=== PATIENT | female | born 1950 | race Caucasian/White ===

== ENCOUNTER 2017-01-19 19:44 | Inpatient (IN) | payer MEDICARE ==
[~2017-01-19] VITALS: Ht 154.9 cm; Wt 61.4 kg
[2017-01-19] MEDS ORDERED: SODIUM CHLORIDE 0.9% 1,000 ML IV ONE ×2 (19:55→22:23)
[2017-01-19] MEDS ORDERED: ONDANSETRON 2MG/ML, 2ML IVPush ONE (20:00)
[2017-01-19] MEDS ORDERED: MORPHINE SULFATE 4 MG/ML, 1ML IVPush PRN (20:00)
[2017-01-19] MEDS ORDERED: ACETAMINOPHEN 325 MG TABLET PO ONE (20:00)
[2017-01-19] MEDS ORDERED: SODIUM CHLORIDE FLUSH 10ML SYR IVF ONE (20:00)
[2017-01-19 20:41] LABS: HEMOGLOBIN 11.4 g/dL (11.7-16.4)
[2017-01-19] MEDS ORDERED: HYDROmorphone 1 MG/ML, 1ML ONE ×3 (20:47→22:00)
[2017-01-19] MEDS ORDERED: ACETAMINOPHEN 325 MG TABLET ONE (20:47)
[2017-01-19] MEDS ORDERED: ONDANSETRON 2MG/ML, 2ML ONE (20:47)
[2017-01-19 20:53] LABS: ASPARTATE AMINO TRANSFERASE 11 U/L (15-37); BLOOD UREA NITROGEN 12 mg/dL (7-18)
[2017-01-19] MEDS: HYDROmorphone 1 MG/ML, 1ML IVPush PRN ×2 (21:04→21:31)
[2017-01-19] MEDS ORDERED: DOCU240C31 PO (21:26)
[2017-01-19] MEDS ORDERED: MULT-108 PO (21:26)
[2017-01-19] MEDS ORDERED: DULO30CA2 PO (21:26)
[2017-01-19] MEDS ORDERED: DICL100G8 TP (21:26)
[2017-01-19] MEDS ORDERED: OMEP-110 PO (21:26)
[2017-01-19] MEDS ORDERED: SPIR50TA2 PO (21:26)
[2017-01-19] MEDS ORDERED: MULT-2 PO (21:26)
[2017-01-19] MEDS ORDERED: OXYC10TA32 PO (21:26)
[2017-01-19] MEDS ORDERED: BIMA2.5D EACHEYE (21:26)
[2017-01-19] MEDS ORDERED: SULF1TAB24 PO (21:26)
[2017-01-19] MEDS ORDERED: LISI5TAB7 PO (21:26)
[2017-01-19] MEDS ORDERED: POLY17PO3 PO (21:26)
[2017-01-19] MEDS ORDERED: TRAZ150T68 PO (21:26)
[2017-01-19] MEDS ORDERED: FERR325T20 PO (21:26)
[2017-01-19] MEDS ORDERED: erythromycin oint EACHEYE (21:26)
[2017-01-19] MEDS ORDERED: OXYC5TAB3 PO (21:26)
[2017-01-19] MEDS ORDERED: PRIM50TA PO (21:26)
[2017-01-19] MEDS ORDERED: THIA50TA2 PO (21:26)
[2017-01-19] MEDS ORDERED: PROP10TA PO (21:26)
[2017-01-19] MEDS ORDERED: FOLI-17 PO (21:26)
[2017-01-19] MEDS ORDERED: HYDROmorphone 1 MG/ML, 1ML IVPush PRN (22:00)
[2017-01-19] MEDS ORDERED: SODIUM CHLORIDE FLUSH 10ML SYR IVF PRN (22:30)
[2017-01-19] MEDS ORDERED: CEFTRIAXONE PMX 1GM/50ML 50 ML IVPB ONE (22:30)
[2017-01-19] MEDS ORDERED: CEFTRIAXONE PMX 1GM/50ML 50 ML ONE (22:42)
[2017-01-19 23:20] VITALS: BP 93/59
[2017-01-19] MEDS ORDERED: SODIUM CHLORIDE 0.9% 1,000 ML IV SCH (23:35)
[2017-01-20] MEDS ORDERED: ONDANSETRON 2MG/ML, 2ML IVP PRN
[2017-01-20] MEDS ORDERED: GUAIFENESIN/DM 200-20MG, 10ML UDC PO PRN
[2017-01-20] MEDS: CEFTRIAXONE PMX 1GM/50ML 50 ML IV SCH ×3 (00:04→23:52)
[2017-01-20] MEDS: ENOXAPARIN 40 MG/0.4 ML SQ SCH ×2 (00:04→20:25)
[2017-01-20] MEDS: PRIMIDONE 50 MG TABLET PO SCH ×2 (00:05→20:24)
[2017-01-20] MEDS: OxyconTIN ER 10 MG TAB.ER PO SCH ×3 (00:08→20:24)
[2017-01-20 01:24] VITALS: BP 93/59
[2017-01-20 03:26] VITALS: BP 102/64
[2017-01-20 05:50] LABS: BLOOD UREA NITROGEN 11 mg/dL (7-18)
[2017-01-20] MEDS: OXYcodone IR 5MG TABLET PO PRN ×3 (06:39→21:33)
[2017-01-20 07:42] VITALS: BP 111/71
[2017-01-20] MEDS: POLYETHYLENE GLYCOL 17 GM PACKET PO SCH (09:00)
[2017-01-20] MEDS ORDERED: OMEPRAZOLE 20 MG CAPSULE.DR PO SCH (09:00)
[2017-01-20] MEDS: DOCUSATE 100 MG CAPSULE PO SCH (09:00)
[2017-01-20] MEDS ORDERED: PROPRANOLOL 10 MG TABLET PO SCH (09:00)
[2017-01-20] MEDS: SPIRONOLACTONE 50 MG TABLET PO SCH (09:00)
[2017-01-20] MEDS: THIAMINE 50MG TABLET PO SCH (09:00)
[2017-01-20] MEDS ORDERED: LISINOPRIL 5 MG TABLET PO SCH (09:00)
[2017-01-20] MEDS: FERROUS SULFATE 325 MG TABLET PO SCH ×2 (09:08→17:01)
[2017-01-20] MEDS: FOLIC ACID 1 MG TABLET PO SCH (09:08)
[2017-01-20] MEDS: DULOXETINE 30 MG CAPSULE.DR PO SCH (09:08)
[2017-01-20] MEDS: MULTIVITAMIN 1 TABLET PO SCH (09:09)
[2017-01-20] MEDS: KETOROLAC 30 MG/1 ML IVPush PRN ×2 (12:16→20:25)
[2017-01-20] MEDS: SODIUM CHLORIDE 0.9% 1,000 ML IV SCH (12:19)
[2017-01-20 13:53] VITALS: BP 106/68
[2017-01-20] MEDS: PHENAZOPYRIDINE 100 MG TABLET PO PRN ×2 (17:01→23:42)
[2017-01-20 19:15] VITALS: BP 158/73
[2017-01-20] MEDS: TRAZODONE 150MG TABLET PO SCH (20:24)
[2017-01-20] MEDS: BIMATOPROST EACHEYE SCH (20:37)
[2017-01-21 02:20] VITALS: BP 134/86
[2017-01-21] MEDS: OXYcodone IR 5MG TABLET PO PRN ×4 (03:28→23:06)
[2017-01-21] MEDS: KETOROLAC 30 MG/1 ML IVPush PRN ×2 (05:06→13:09)
[2017-01-21 05:38] LABS: HEMOGLOBIN 9.9 g/dL (11.7-16.4)
[2017-01-21 05:51] LABS: BLOOD UREA NITROGEN 9 mg/dL (7-18)
[2017-01-21] MEDS: SODIUM CHLORIDE 0.9% 1,000 ML IV SCH ×2 (06:07→20:02)
[2017-01-21 07:25] VITALS: BP 95/63
[2017-01-21] MEDS: DULOXETINE 30 MG CAPSULE.DR PO SCH (08:39)
[2017-01-21] MEDS: DOCUSATE 100 MG CAPSULE PO SCH (08:39)
[2017-01-21] MEDS: SPIRONOLACTONE 50 MG TABLET PO SCH (08:39)
[2017-01-21] MEDS: FERROUS SULFATE 325 MG TABLET PO SCH ×2 (08:39→17:04)
[2017-01-21] MEDS: MULTIVITAMIN 1 TABLET PO SCH (08:40)
[2017-01-21] MEDS: FOLIC ACID 1 MG TABLET PO SCH (08:40)
[2017-01-21] MEDS: THIAMINE 50MG TABLET PO SCH (08:40)
[2017-01-21] MEDS: OxyconTIN ER 10 MG TAB.ER PO SCH ×2 (08:40→20:01)
[2017-01-21] MEDS: POLYETHYLENE GLYCOL 17 GM PACKET PO SCH (08:40)
[2017-01-21] MEDS: PROPRANOLOL 10 MG TABLET PO SCH (08:40)
[2017-01-21] MEDS ORDERED: SODIUM CHLORIDE 0.9%, 500ML IVBOLUS ONE (11:00)
[2017-01-21] MEDS: CEFTRIAXONE PMX 1GM/50ML 50 ML IV SCH ×2 (12:23→23:06)
[2017-01-21] MEDS: PHENAZOPYRIDINE 100 MG TABLET PO PRN ×2 (13:09→21:30)
[2017-01-21] MEDS ORDERED: KETOROLAC 30 MG/1 ML IVPush PRN (13:30)
[2017-01-21 13:59] VITALS: BP 155/83
[2017-01-21 14:11] LABS: HEMOGLOBIN 9.6 g/dL (11.7-16.4)
[2017-01-21 14:47] LABS: OCCBLD OBC PASS
[2017-01-21] MEDS: TRAZODONE 150MG TABLET PO SCH (20:01)
[2017-01-21] MEDS: ENOXAPARIN 40 MG/0.4 ML SQ SCH (20:02)
[2017-01-21] MEDS: PRIMIDONE 50 MG TABLET PO SCH (20:02)
[2017-01-21] MEDS: BIMATOPROST EACHEYE SCH (20:05)
[2017-01-21 20:08] VITALS: BP 150/95
[2017-01-21 21:05] LABS: OCCBLD OBC PASS
[2017-01-21 21:10] LABS: OCCBLD OBC PASS
[2017-01-22 01:03] VITALS: BP 140/76
[2017-01-22] MEDS: OXYcodone IR 5MG TABLET PO PRN ×3 (05:05→18:19)
[2017-01-22] MEDS: SODIUM CHLORIDE 0.9% 1,000 ML IV SCH (05:05)
[2017-01-22 05:52] LABS: BLOOD UREA NITROGEN 8 mg/dL (7-18)
[2017-01-22 07:11] VITALS: BP 142/76
[2017-01-22] MEDS: MULTIVITAMIN 1 TABLET PO SCH (08:59)
[2017-01-22] MEDS: DOCUSATE 100 MG CAPSULE PO SCH ×2 (08:59→09:00)
[2017-01-22] MEDS: FERROUS SULFATE 325 MG TABLET PO SCH ×2 (08:59→18:18)
[2017-01-22] MEDS: DULOXETINE 30 MG CAPSULE.DR PO SCH (08:59)
[2017-01-22] MEDS: OxyconTIN ER 10 MG TAB.ER PO SCH ×2 (09:00→20:45)
[2017-01-22] MEDS: SPIRONOLACTONE 50 MG TABLET PO SCH (09:00)
[2017-01-22] MEDS: POLYETHYLENE GLYCOL 17 GM PACKET PO SCH ×2 (09:00→09:01)
[2017-01-22] MEDS: FOLIC ACID 1 MG TABLET PO SCH (09:00)
[2017-01-22] MEDS: THIAMINE 50MG TABLET PO SCH (09:00)
[2017-01-22] MEDS: PROPRANOLOL 10 MG TABLET PO SCH (09:01)
[2017-01-22] MEDS: LISINOPRIL 5 MG TABLET PO SCH (11:46)
[2017-01-22] MEDS ORDERED: OXYBUTYNIN CHLORIDE 5 MG TABLET PO PRN (12:00)
[2017-01-22] MEDS ORDERED: PHENAZOPYRIDINE 200 MG TABLET PO PRN (12:00)
[2017-01-22] MEDS: CEFTRIAXONE PMX 1GM/50ML 50 ML IV SCH (12:42)
[2017-01-22 13:50] VITALS: BP 140/80
[2017-01-22 20:20] VITALS: BP 136/86
[2017-01-22] MEDS: PRIMIDONE 50 MG TABLET PO SCH (20:45)
[2017-01-22] MEDS: BIMATOPROST EACHEYE SCH (20:46)
[2017-01-22] MEDS: TRAZODONE 150MG TABLET PO SCH (20:46)
[2017-01-22] MEDS: ENOXAPARIN 40 MG/0.4 ML SQ SCH (20:46)
[2017-01-23] MEDS: CEFTRIAXONE PMX 1GM/50ML 50 ML IV SCH ×2 (00:07→12:18)
[2017-01-23] MEDS: OXYcodone IR 5MG TABLET PO PRN ×4 (00:07→18:22)
[2017-01-23 02:41] VITALS: BP 163/99
[2017-01-23 06:11] LABS: HEMOGLOBIN 10.2 g/dL (11.7-16.4)
[2017-01-23 06:26] LABS: BLOOD UREA NITROGEN 4 mg/dL (7-18)
[2017-01-23 07:32] VITALS: BP 159/95
[2017-01-23] MEDS: POLYETHYLENE GLYCOL 17 GM PACKET PO SCH (09:00)
[2017-01-23] MEDS: THIAMINE 50MG TABLET PO SCH (09:00)
[2017-01-23] MEDS: FOLIC ACID 1 MG TABLET PO SCH (09:32)
[2017-01-23] MEDS: FERROUS SULFATE 325 MG TABLET PO SCH ×2 (09:32→17:02)
[2017-01-23] MEDS: SPIRONOLACTONE 50 MG TABLET PO SCH (09:32)
[2017-01-23] MEDS: DOCUSATE 100 MG CAPSULE PO SCH (09:32)
[2017-01-23] MEDS: MULTIVITAMIN 1 TABLET PO SCH (09:32)
[2017-01-23] MEDS: PROPRANOLOL 10 MG TABLET PO SCH (09:32)
[2017-01-23] MEDS: DULOXETINE 30 MG CAPSULE.DR PO SCH (09:32)
[2017-01-23] MEDS: OxyconTIN ER 10 MG TAB.ER PO SCH ×2 (09:33→21:18)
[2017-01-23] MEDS: LISINOPRIL 5 MG TABLET PO SCH (09:33)
[2017-01-23 12:43] VITALS: BP 156/90
[2017-01-23 20:17] VITALS: BP 159/95
[2017-01-23] MEDS: BIMATOPROST EACHEYE SCH (21:00)
[2017-01-23] MEDS: TRAZODONE 150MG TABLET PO SCH (21:17)
[2017-01-23] MEDS: ENOXAPARIN 40 MG/0.4 ML SQ SCH (21:18)
[2017-01-23] MEDS: PRIMIDONE 50 MG TABLET PO SCH (21:18)
[2017-01-24] MEDS: OXYcodone IR 5MG TABLET PO PRN ×4 (00:15→19:57)
[2017-01-24] MEDS: CEFTRIAXONE PMX 1GM/50ML 50 ML IV SCH ×2 (00:15→12:05)
[2017-01-24 05:33] VITALS: BP 145/86
[2017-01-24 07:58] VITALS: BP 137/87
[2017-01-24] MEDS: POLYETHYLENE GLYCOL 17 GM PACKET PO SCH (08:17)
[2017-01-24] MEDS: THIAMINE 50MG TABLET PO SCH (09:00)
[2017-01-24] MEDS: LISINOPRIL 5 MG TABLET PO SCH (09:19)
[2017-01-24] MEDS: FOLIC ACID 1 MG TABLET PO SCH (09:19)
[2017-01-24] MEDS: PROPRANOLOL 10 MG TABLET PO SCH (09:19)
[2017-01-24] MEDS: MULTIVITAMIN 1 TABLET PO SCH (09:19)
[2017-01-24] MEDS: FERROUS SULFATE 325 MG TABLET PO SCH ×2 (09:19→16:00)
[2017-01-24] MEDS: SPIRONOLACTONE 50 MG TABLET PO SCH (09:19)
[2017-01-24] MEDS: DOCUSATE 100 MG CAPSULE PO SCH (09:19)
[2017-01-24] MEDS: DULOXETINE 30 MG CAPSULE.DR PO SCH (09:19)
[2017-01-24] MEDS: OxyconTIN ER 10 MG TAB.ER PO SCH ×2 (09:20→21:43)
[2017-01-24 13:08] VITALS: BP 152/77
[2017-01-24] MEDS: LACTOBACILLUS CHEW TABLET PO SCH ×2 (16:00→21:42)
[2017-01-24 19:50] VITALS: BP 152/90
[2017-01-24] MEDS: BIMATOPROST EACHEYE SCH (21:00)
[2017-01-24] MEDS: ENOXAPARIN 40 MG/0.4 ML SQ SCH (21:42)
[2017-01-24] MEDS: CEFDINIR 300 MG CAPSULE PO SCH (21:42)
[2017-01-24] MEDS: TRAZODONE 150MG TABLET PO SCH (21:43)
[2017-01-24] MEDS: PRIMIDONE 50 MG TABLET PO SCH (21:43)
[2017-01-25 02:00] VITALS: BP 153/83
[2017-01-25] MEDS: OXYcodone IR 5MG TABLET PO PRN ×3 (02:15→14:44)
[2017-01-25 05:31] LABS: HEMOGLOBIN 10.1 g/dL (11.7-16.4)
[2017-01-25 05:38] LABS: BLOOD UREA NITROGEN 7 mg/dL (7-18)
[2017-01-25 06:20] LABS: DIFF TOTAL CELLS COUNTED 100 CELL DIFF
[2017-01-25 06:24] LABS: VERIFY COUNTS? YES
[2017-01-25 07:12] VITALS: BP 137/81
[2017-01-25] MEDS ORDERED: DIAZEPAM 5 MG TABLET PO ONE (08:00)
[2017-01-25] MEDS: FOLIC ACID 1 MG TABLET PO SCH (10:09)
[2017-01-25] MEDS: DULOXETINE 30 MG CAPSULE.DR PO SCH (10:09)
[2017-01-25] MEDS: MULTIVITAMIN 1 TABLET PO SCH (10:09)
[2017-01-25] MEDS: PROPRANOLOL 10 MG TABLET PO SCH (10:10)
[2017-01-25] MEDS: OxyconTIN ER 10 MG TAB.ER PO SCH ×2 (10:10→20:28)
[2017-01-25] MEDS: SPIRONOLACTONE 50 MG TABLET PO SCH (10:11)
[2017-01-25] MEDS: POLYETHYLENE GLYCOL 17 GM PACKET PO SCH (10:11)
[2017-01-25] MEDS: LACTOBACILLUS CHEW TABLET PO SCH ×3 (10:11→20:29)
[2017-01-25] MEDS: THIAMINE 50MG TABLET PO SCH (10:11)
[2017-01-25] MEDS: DOCUSATE 100 MG CAPSULE PO SCH (10:11)
[2017-01-25] MEDS: FERROUS SULFATE 325 MG TABLET PO SCH ×2 (10:11→17:09)
[2017-01-25] MEDS: LISINOPRIL 5 MG TABLET PO SCH (10:11)
[2017-01-25] MEDS: CEFDINIR 300 MG CAPSULE PO SCH ×2 (10:11→20:29)
[2017-01-25 12:33] VITALS: BP 158/88
[2017-01-25] MEDS ORDERED: POTASSIUM CHLORIDE 20 MEQ TAB.ER.PRT PO ONE (14:00)
[2017-01-25] MEDS ORDERED: DIAZEPAM 5 MG TABLET ONE (16:03)
[2017-01-25 18:55] VITALS: BP 164/116
[2017-01-25] MEDS: PRIMIDONE 50 MG TABLET PO SCH (20:27)
[2017-01-25] MEDS: LISINOPRIL 10 MG TABLET PO SCH (20:29)
[2017-01-25] MEDS: TRAZODONE 150MG TABLET PO SCH (20:29)
[2017-01-25] MEDS: ENOXAPARIN 40 MG/0.4 ML SQ SCH (20:35)
[2017-01-25] MEDS: BIMATOPROST EACHEYE SCH (21:00)
[2017-01-26 02:37] VITALS: BP 134/79
[2017-01-26] MEDS: OXYcodone IR 5MG TABLET PO PRN ×4 (04:33→23:39)
[2017-01-26 05:17] LABS: BLOOD UREA NITROGEN 9 mg/dL (7-18)
[2017-01-26 06:54] VITALS: BP 125/76
[2017-01-26] MEDS: THIAMINE 50MG TABLET PO SCH (09:00)
[2017-01-26] MEDS: OxyconTIN ER 10 MG TAB.ER PO SCH ×2 (09:55→19:59)
[2017-01-26] MEDS: FERROUS SULFATE 325 MG TABLET PO SCH ×2 (09:55→17:24)
[2017-01-26] MEDS: LISINOPRIL 10 MG TABLET PO SCH ×2 (09:56→19:57)
[2017-01-26] MEDS: DOCUSATE 100 MG CAPSULE PO SCH (09:57)
[2017-01-26] MEDS: LACTOBACILLUS CHEW TABLET PO SCH ×3 (09:57→19:57)
[2017-01-26] MEDS: MULTIVITAMIN 1 TABLET PO SCH (09:57)
[2017-01-26] MEDS: SPIRONOLACTONE 50 MG TABLET PO SCH (09:58)
[2017-01-26] MEDS: DULOXETINE 30 MG CAPSULE.DR PO SCH (09:58)
[2017-01-26] MEDS: FOLIC ACID 1 MG TABLET PO SCH (09:58)
[2017-01-26] MEDS: POLYETHYLENE GLYCOL 17 GM PACKET PO SCH (09:59)
[2017-01-26] MEDS: PROPRANOLOL 10 MG TABLET PO SCH (09:59)
[2017-01-26] MEDS: CEFDINIR 300 MG CAPSULE PO SCH ×2 (09:59→19:57)
[2017-01-26] MEDS ORDERED: PRIM50TA PO (12:46)
[2017-01-26 13:24] VITALS: BP 161/89
[2017-01-26 18:35] VITALS: BP 147/88
[2017-01-26] MEDS: TRAZODONE 150MG TABLET PO SCH (19:57)
[2017-01-26] MEDS: PRIMIDONE 50 MG TABLET PO SCH (19:58)
[2017-01-26] MEDS: ENOXAPARIN 40 MG/0.4 ML SQ SCH (20:00)
[2017-01-26] MEDS: BIMATOPROST EACHEYE SCH (20:03)
[2017-01-27 04:54] VITALS: BP 108/72
[2017-01-27] MEDS: OXYcodone IR 5MG TABLET PO PRN ×3 (05:17→15:58)
[2017-01-27 07:33] VITALS: BP 132/84
[2017-01-27] MEDS: FOLIC ACID 1 MG TABLET PO SCH (09:00)
[2017-01-27] MEDS: THIAMINE 50MG TABLET PO SCH (09:00)
[2017-01-27] MEDS: SPIRONOLACTONE 50 MG TABLET PO SCH (09:00)
[2017-01-27] MEDS: LACTOBACILLUS CHEW TABLET PO SCH (09:09)
[2017-01-27] MEDS: FERROUS SULFATE 325 MG TABLET PO SCH (09:09)
[2017-01-27] MEDS: POLYETHYLENE GLYCOL 17 GM PACKET PO SCH (09:09)
[2017-01-27] MEDS: LISINOPRIL 10 MG TABLET PO SCH (09:10)
[2017-01-27] MEDS: MULTIVITAMIN 1 TABLET PO SCH (09:10)
[2017-01-27] MEDS: DOCUSATE 100 MG CAPSULE PO SCH (09:10)
[2017-01-27] MEDS: DULOXETINE 30 MG CAPSULE.DR PO SCH (09:10)
[2017-01-27] MEDS: CEFDINIR 300 MG CAPSULE PO SCH (09:11)
[2017-01-27] MEDS: PROPRANOLOL 10 MG TABLET PO SCH (09:11)
[2017-01-27] MEDS: OxyconTIN ER 10 MG TAB.ER PO SCH (09:14)
[2017-01-27] MEDS ORDERED: CIPR500T87 PO (14:24)
[2017-01-27 14:50] VITALS: BP 109/73
== END 2017-01-27 16:58 | disposition home or self-care (01) | DRG 872 ==
LOC: ED 22:09 → EDIP 22:23 → 3NE 23:17
PROVIDERS: ADMIT Internal Medicine
PROC: 0T9B70Z Drainage of Bladder with Drainage Device, Via Natural or Artificial Opening (ICD-10-PCS; principal; 2017-01-19)
DX: A41.9 Sepsis, unspecified organism (principal); N10 Acute pyelonephritis; E87.1 Hypo-osmolality and hyponatremia; D64.9 Anemia, unspecified; E11.9 Type 2 diabetes mellitus without complications; G25.0 Essential tremor; G89.4 Chronic pain syndrome; I10 Essential (primary) hypertension; I48.91 Unspecified atrial fibrillation; R47.02 Dysphasia; B96.20 Unspecified Escherichia coli [E. coli] as the cause of diseases classified elsewhere; Z86.73 Personal history of transient ischemic attack (TIA), and cerebral infarction without residual deficits; Z99.3 Dependence on wheelchair
CPT/HCPCS: 36415; 70551; 71010; 80048; 80053; 81001; 82272; 83605; 83735; 84100; 84145; 85014; 85018; 85025; 85610; 85730; 87040; 87077; 87086; 87186; 93005; 96361; 96374; 96375; 96376; J0696; J1170; J1650; J1885; J2405; J7030; J7040

== ENCOUNTER → 2017-03-30 | Outpatient (CLI) | payer MEDICARE ==
[~2017-03-30] MED LIST: BIMA2.5D EACHEYE; CIPR500T87 PO; DICL100G8 TP; DOCU240C31 PO; DULO30CA2 PO; FERR325T20 PO; FOLI-17 PO; LISI5TAB7 PO; MULT-108 PO; MULT-2 PO; OMEP-110 PO; OXYC10TA32 PO; OXYC5TAB3 PO; POLY17PO3 PO; PRIM50TA PO; PROP10TA PO; SPIR50TA2 PO; SULF1TAB24 PO; THIA50TA2 PO; TRAZ150T68 PO; erythromycin oint EACHEYE
== END | disposition home or self-care (01) ==
LOC: CFH 12:18
PROVIDERS: ATTEND Nurse Practitioner Family
DX: M50.31 Other cervical disc degeneration, high cervical region (principal); M50.23 Other cervical disc displacement, cervicothoracic region; M50.21 Other cervical disc displacement, high cervical region; M43.22 Fusion of spine, cervical region; M43.17 Spondylolisthesis, lumbosacral region; M48.06 Spinal stenosis, lumbar region; M51.27 Other intervertebral disc displacement, lumbosacral region; M25.80 Other specified joint disorders, unspecified joint; M51.37 Other intervertebral disc degeneration, lumbosacral region; M43.12 Spondylolisthesis, cervical region; Z98.1 Arthrodesis status
CPT/HCPCS: 72050; 72072; 72110; 72141; 72148

== ENCOUNTER → 2017-06-22 | Outpatient (CLI) | payer MEDICARE | END | disposition home or self-care (01) | LOC: PETCFH 11:08 | PROVIDERS: ATTEND Nurse Practitioner Family | DX: M48.06 Spinal stenosis, lumbar region (principal); M43.17 Spondylolisthesis, lumbosacral region; M43.16 Spondylolisthesis, lumbar region; M51.86 Other intervertebral disc disorders, lumbar region | CPT/HCPCS: 78306; A9503 ==